=== PATIENT | female | born 1965 | race Caucasian/White ===

== ENCOUNTER → 2018-07-05 09:32 | Outpatient (CLI) | payer BC, MEDICARE ==
[2009-06-07 20:40] VITALS: BMI 38.6
== END | disposition home or self-care (01) ==
LOC: D.RAD 06-27 10:00
DX: M54.5 Low back pain (principal)

== ENCOUNTER → 2020-10-12 08:42 | Outpatient (CLI) | payer BC, MEDICARE ==
[2009-06-07 20:40] VITALS: BMI 38.6
== END | disposition home or self-care (01) ==
LOC: D.RAD 08:42
PROVIDERS: ATTEND Family Medicine
DX: M25.511 Pain in right shoulder (principal)